=== PATIENT | female | born 1945 | race Caucasian/White ===

== ENCOUNTER 2016-12-28 07:56 | Emergency (ER) | payer MEDICARE, OTHER ==
[2016-12-28 08:04] VITALS: BP 125/67
--- NOTE | 2016-12-28 08:37 | UC ---
Respiratory Complaint HPI - History of Current Complaint Chief Complaint: UCGeneralIllness Stated Complaint: URI Time Seen by Provider: 12/28/16 08:23 Hx Obtained From: Patient Onset/Duration: Gradual Onset - started 4-[address], then progressed to cough and today sinus pressure, congestion. very tired Severity Initially: Mild Severity Currently: Moderate Aggravating Factors: Recumbent Position Alleviating Factors: Nothing Associated Signs And Symptoms: Positive: URI, Nasal Congestion. Negative: Hemoptysis, Dizziness - Risk Factors Cardiac Risk Factors: Hypertension - Allergies/Home Medications Allergies/Adverse Reactions: Allergies Allergy/AdvReac Type Severity Reaction Status Date / Time Sulfa Drugs Allergy Severe Anaphylatic Verified 12/28/16 08:04 Shock PMH/Surg Hx/FS Hx/Imm Hx Previously Healthy: Yes Endocrine History: Dyslipidemia Cardiovascular History: Hypertension - Surgical History Surgical History: Yes Surgery Procedure, Year, and Place: hysterectomy, 3 knee surgery 2 on right knee , 1 left knee - Family History Known Family History: Positive: Hypertension - Social History Occupation: Retired Lives: With Family Alcohol Use: None Substance Use Type: None Smoking Status (MU): Never Smoked Tobacco - Immunization History Most Recent Influenza Vaccination: 10/27 Review of Systems Constitutional: Fatigue Skin: Negative Eyes: Negative ENT: Sore Throat, Nasal Discharge, Sinus Congestion Respiratory: Cough Cardiovascular: Negative Gastrointestinal: Negative Neurological: Negative Psychological: Negative All Other Systems Reviewed And Are Negative: Yes Physical Exam Triage Information Reviewed: Yes Appearance: Well-Appearing, No Pain Distress, Well-Nourished Vital Signs: Initial Vital Signs Temp 98.6 F 12/28/16 07:59 Pulse 84 12/28/16 07:59 Resp 18 12/28/16 07:59 BP 125/67 12/28/16 07:59 Pulse Ox 98 12/28/16 07:59 Vital Signs Reviewed: Yes Eyes: Positive: Conjunctiva Clear ENT: Positive: Nasal congestion, TM dull, Sinus tenderness Neck: Positive: Supple, Nontender, No Lymphadenopathy Respiratory Exam: Normal Respiratory: Positive: Lungs clear Cardiovascular Exam: Normal Cardiovascular: Positive: RRR, Pulses Normal Neurological Exam: Normal Psychological Exam: Normal Skin Exam: Normal UC Diagnostic Evaluation - Laboratory O2 Sat by Pulse Oximetry: 98 Respiratory Course/Dx - Differential Dx/Diagnosis Differential Diagnosis/HQI/PQRI: Bronchitis, Influenza, Sinusitis Provider Diagnoses: sinusitis. Upper respiratory Infection Discharge - Discharge Plan Condition: Stable Disposition: HOME Prescriptions: Azithromycin TAB* [Zithromax TAB (Z-ARTIE) 250 mg #6 tabs] 2 tab PO .TODAY, THEN 1 DAILY #1 artie Patient Education Materials: Sinusitis (ED), Upper Respiratory Infection (ED) Referrals: Nel Desir MD [Primary Care Provider] - 3 Days (if no better) Additional Instructions: drink plenty of fluids use Robitussin DM for cough relief Use Zithromax as directed
--- NOTE | 2016-12-28 08:39 | UC ---
Psychiatric Complaint HPI - HPI Summary HPI Summary: 71 year old female with cough. Cold symptoms, started with a sore throat on Friday and Friday, now with ear pain, cough, sinus congestion. [ End ] - History Of Current Complaint Chief Complaint: UCGeneralIllness Stated Complaint: URI Time Seen by Provider: 12/28/16 08:23 Onset/Duration: Gradual Onset Timing: Constant - Allergies/Home Medications Allergies/Adverse Reactions: Allergies Allergy/AdvReac Type Severity Reaction Status Date / Time Sulfa Drugs Allergy Severe Anaphylatic Verified 12/28/16 08:04 Shock PMH/Surg Hx/FS Hx/Imm Hx - Surgical History Surgical History: Yes Surgery Procedure, Year, and Place: hysterectomy, 3 knee surgery 2 on right knee , 1 left knee - Social History Alcohol Use: None Substance Use Type: None Smoking Status (MU): Never Smoked Tobacco - Immunization History Most Recent Influenza Vaccination: 10/27 Physical Exam Vital Signs: Initial Vital Signs Temp 98.6 F 12/28/16 07:59 Pulse 84 12/28/16 07:59 Resp 18 12/28/16 07:59 BP 125/67 12/28/16 07:59 Pulse Ox 98 12/28/16 07:59 Discharge - Discharge Plan Referrals: Nel Desir MD [Primary Care Provider] -
== END 2016-12-28 08:40 | disposition home or self-care (01) ==
LOC: UCEAST 07:56
DX: J32.9 Chronic sinusitis, unspecified (principal); J06.9 Acute upper respiratory infection, unspecified
CPT/HCPCS: 99212; G0463